=== PATIENT | female | born 1975 | race Hispanic/Latino ===

== ENCOUNTER 2019-09-30 01:34 | Emergency (ER) | payer SELFPAY ==
[~2019-09-30] VITALS: Ht 160 cm; Wt 86.2 kg
[2019-09-30] MEDS ORDERED: CLONIDINE HCL 0.2 MG TAB PO ONE (02:15)
[2019-09-30] MEDS ORDERED: CLONIDINE HCL 0.1 MG TAB ONE (02:28)
--- NOTE | 2019-09-30 04:03 | Emergency Department Note ---
History of Present Illnes History of Present Illness Chief Complaint: Hypertension History of Present Illness This is a 44 year old female with chief complaint of high blood press ure. Stopped blood pressure medication 1 week ago due to the fact that she is . Her menstrual period started, she restarted her blood pressure medication about 24 hours prior to arrival. She states that her blood pressure was up despite restarting her blood pressure systolic her propanolol at 8 PM. She states that she has a very mild headache over her bilateral temples. There is no numbness tingling or weakness. There is no slurred speech is no vision problems is no hearing problems. No balance problems, vertigo, or dizziness. Historian: Patient Arrival Mode: Car Business Development Coordinator Required: No Timing of current episode: intermittent Progression: worsening Chronicity: recurrent Associated symptoms: Reports headaches; Denies confusion, Denies chest pain, Denies cough, Denies diaphoresis, Denies fever/chills, Denies loss of appetite, Denies malaise, Denies nausea/vomiting, Denies rash, Denies seizure, Denies shortness of breath, Denies syncope, Denies weakness Past Medical/Family History Physician Review I have reviewed the patient's past medical and family history. Any updates have been documented here. Past Medical History Recent Fever: No Clinical Suspicion of Infectio: No New/Unexplained Change in Ment: No Past Medical History: Hypertension Past Surgical History: None Social History Smoking Cessation: Never Smoker Alcohol Use: None Any Illegal Drug Use: No Physically hurt or threatened: No Other Any Pre-Existing Lines (PICC,: No Review of Systems Review of Systems Cardiovascular: Reports no symptoms; Denies chest pain, Denies edema, Denies palpitations Respiratory: Reports no symptoms; Denies chest congestion, Denies cough Gastrointestinal: Reports no symptoms; Denies abdominal pain Genitourinary: Reports no symptoms; Denies dysuria, Denies frequency Musculoskeletal: Reports no symptoms Neurological: Reports no symptoms Hematological/Lymphatic: Reports no symptoms Review of other systems: All other systems negative Physical Exam Related Data Triage Vital Signs Vital Signs Date Time Temp Pulse Resp B/P (MAP) Pulse Ox O2 Delivery O2 Flow Rate FiO2 09/29/ 01:58 97.0 69 18 229/127 100 Room Air 233/152 Physical Exam CONSTITUTIONAL Constitutional: Present well-developed, Present well-nourished HENT EYES NECK PULMONARY Pulmonary: Present effort normal, Present breath sounds normal CARDIOVASCULAR Cardiovascular: Present regular rhythm, Present heart sounds normal, Present capillary refill normal, Present normal rate GASTROINTESTINAL Abdominal: Present soft, Present nontender, Present bowel sounds normal GENITOURINARY SKIN Skin: Present warm, Present dry MUSCULOSKELETAL Musculoskeletal: Present ROM normal NEUROLOGICAL Neurological: Present alert, Present oriented x 3, Present no gross motor or sensory deficits; Absent sensory deficit, Absent abnormal gait, Absent weakness PSYCHOLOGICAL Results Laboratory Laboratory comments glu 108, bun 13 creatinine 0.7 CK 128 sodium 139 potassium 3.5 chloride 102 bicarbonate 30, WBC 8.7, PLT 325, HGB 13.5, HCT 40.5. UPT NEGATIVE, Procedures 12 Lead ECG Interpretation ECG Interpretation : ECG: ECG 1 Business Development Coordinator: Interpreted by ED physician Date: Sep 30, 2019 Prior ECG tracings: reviewed Rhythm: sinus rhythm BPM: 68 QRS axis: normal ST segments normal: Yes T waves normal: Yes Clinical Impression: normal ECG Assessment & Plan Medical Decision Making MDM Patient with a blood pressure as high as 244/133 in the emergency room. She has no end organ damage noted: ex. a normal neurological exam, denies chest pain, has a normal creatinine with good urine output. has had 1 dose of her medication otherwise has been off her medication for week. Patient is encouraged to take her medications as instructed regularly check her blood pressure and promptly follow-up with her primary care physician. She is given strict return precautions. Assessment & Plan Final Impression: (1) Hypertensive urgency Depart Disposition: HOME, SELF-CARE Last Vital Signs Date Time Temp Pulse Resp B/P (MAP) Pulse Ox O2 Delivery O2 Flow Rate FiO2 09/30/19 03:23 57 18 150/84 96 09/30/19 01:58 97.0 Room Air Medications in the ED Clonidine HCl 0.2 mg ONCE ONCE PO Last administered on 09/30/19at 02:25; Admin Dose 0.2 MG; Start 09/30/19 at 02:15; Stop 09/30/19 at 02:16; Status UNV Clonidine HCl 0.2 mg STK-MED ONCE .ROUTE ; Start 09/30/19 at 02:28; Stop 09/30/19 at 02:22; Status DC DHIRAJ GALLEGO MD Sep 30, 2019 03:32
[2019-09-30 04:23] VITALS: BP 154/89
== END 2019-09-30 04:19 | disposition home or self-care (01) ==
LOC: FSED 02:20
DX: I16.0 Hypertensive urgency (principal); I10 Essential (primary) hypertension
CPT/HCPCS: 80048; 81003; 81025; 85025; 93005; 99283